=== PATIENT | female | born 1990 | race Hispanic/Latino ===

== ENCOUNTER 2019-02-11 10:20 | Emergency (ER) | payer OTHER ==
[2019-02-11 10:50] VITALS: RESP 18; O2SAT 98
[2019-02-11] MEDS ORDERED: Lidocaine 1% Inj (20ml) IJ STA (11:01)
--- NOTE | 2019-02-11 11:10 | ED PDOC ---
HPI: Female Pain Time Seen by Provider: 02/11/19 10:55 Chief Complaint (Nursing): Female Genitourinary Chief Complaint (Provider): Bartholin cyst History Per: Patient History/Exam Limitations: no limitations Onset/Duration Of Symptoms: Days Current Symptoms Are (Timing): Still Present Severity: Moderate Pain Scale Rating Of: 6 Additional Complaint(s): 28 yo healthy F presenting with a left sided bartholin cyst. Pt reports she had one 5 years ago that was drained in an ER and resolved. This current one started 2 weeks ago. Her OBGYN Dr. Kovacs started her on Keflex for 10 days, which she finished. It started to get better but then started getting worse again 3 days ago, she then went to an urgent care and was prescribed Bactrim which she started yesterday. She has been taking Advil for pain with very mild relief, last dose 0830 am (2 hours [employer]). Certain movements and sitting cause pain. Pt denies fever, chills, abdominal pain, urinary symptoms, vaginal discharge, drainage from cyst PMD: Dr. Gwen Jean OBGYN: Dr. Kovacs LMP: 28 days ago Past Medical History Vital Signs: Last Vital Signs Temp 99 F 02/11/19 10:45 Pulse 130 H 02/11/19 10:45 Resp 18 02/11/19 10:45 BP 155/95 H 02/11/19 10:45 Pulse Ox 98 02/11/19 10:45 - Medical History PMH: No Chronic Diseases - Surgical History Surgical History: No Surg Hx - Family History Family History: States: No Known Family Hx - Living Arrangements Living Arrangements: With Family - Social History Current smoker - smoking cessation education provided: No Alcohol: None Drugs: Denies - Home Medications Home Medications: Ambulatory Orders Medication Instructions Recorded traMADol [Ultram] 50 mg PO Q6 PRN #12 tab 02/11/19 - Allergies Allergies/Adverse Reactions: Allergies Allergy/AdvReac Type Severity Reaction Status Date / Time No Known Allergies Allergy Verified 02/11/19 10:45 Review of Systems Constitutional: Negative for: Fever Cardiovascular: Negative for: Chest Pain Physical Exam - Physical Exam Comments: GENERAL APPEARANCE: Patient is awake, alert, oriented x 3, in mild painful distress. Skin: warm and dry, Pulmonary: lungs clear, no rhonchi, no wheezing. Cardiac: regular rate and rhythm, no murmur, no gallop. Abdomen: soft, nontender. GENITAL: external genitalia; (-) vesicles, (-) ulcers. (+) 2cm L bartholin abscess moderately fluctuant with surrounding erythema, moderate tenderness to palpation, no active drainage, (-) vaginal discharge; Extremities: no deformity, full range of motion, no tenderness. - ECG O2 Sat by Pulse Oximetry: 98 Medical Decision Making Medical Decision Makin:55 initial eval, 28yo F with bartholin cyst on antibiotics with no improvement -- u preg --Tramadol PO for pain (pt has ride home) --will drain abscess -- re eval on my initial eval her HR is 98, RR 16, afebrile, first recorded VSS show tachycardia and hypertensive, likely due to pain and pt is nervous 11:45 I&D done by me, pt tolerated well, moderate amount of purulent drainage, word catheter was not placed due to pt unable to tolerate and did not want after I&D pt is feeling much better, pain is much improved, VSS, pt is on appropriate antibiotics and has f/u with her OBGYN Discussed results, diagnosis, treatment, return precautions and f/u with pt who is understanding, in agreement and stable for dc Procedures - Time-Out Type of Procedure: incision and draiange Correct Patient (with visual ID + MR# on ID Band): Yes Correct Procedure: Yes Correct Site Marked: Yes - Incision and Drainage Site: left Bartholin abscess Blade Size: 11 I & D Procedure: betadine prep Progress: moderate purulent drainage, no word cath place as pt refused, otherwise pt tolerated well Disposition - Clinical Impression Clinical Impression: Bartholin's gland abscess - Patient ED Disposition Is Patient to be Admitted: No Counseled Patient/Family Regarding: Studies Performed, Diagnosis, Need For Followup, Rx Given - Disposition Referrals: Modesto Kovacs DO [Staff Provider] - Gwen Jean [Medical Doctor] - Disposition: Routine/Home Disposition Time: 11:57 Condition: IMPROVED Additional Instructions: Return to ED for new or worsening symptoms, fever >100.4, increasing pain, redness or swelling, urinary symptoms, or vaginal discharge. FOllow up with your OBGYN in 3-5 days. Continue taking antibiotics as prescribed until finished. Take Advil for pain and tramadol for worsening pain. DO not drive or drink alcohol when taking. Apply warm compresses 2-3 times a day to help drainage. Prescriptions: traMADol [Ultram] 50 mg PO Q6 PRN #12 tab PRN Reason: Pain, Severe (8-10) Instructions: Abscess Incision and Drainage (DC), Bartholin's Gland Cyst Forms: [employer] ([employer]), [facility] ED School/Work Excuse Print Language: KAZAKH - POA Present On Arrival: None
[2019-02-11] MEDS ORDERED: Lidocaine Hydrochloride 1% 10 ML ONE (11:29)
[2019-02-11 12:32] VITALS: BP 122/64; PULSE 73
[2019-02-11 12:35] VITALS: TEMP 98.4
== END 2019-02-11 12:39 | disposition home or self-care (01) ==
LOC: H.ER 10:20
DX: N75.1 Abscess of Bartholin's gland (principal)